=== PATIENT | male | born 1975 | race Two or more races ===

== ENCOUNTER 2018-03-02 11:04 | Emergency (ER) | payer OTHER ==
[~2018-03-02] VITALS: Ht 170.2 cm; Wt 83.9 kg
[2018-03-02] MEDS ORDERED: KETOROLAC TROMETH 60MG/2ML VIAL IM ONE (11:15)
[2018-03-02 11:42] VITALS: BP 152/93
[2018-03-02] MEDS ORDERED: traMADol HCL 50 MG TAB PO ONE (11:45)
== END 2018-03-02 13:12 | disposition home or self-care (01) ==
LOC: ER 11:04
DX: S32.018A Other fracture of first lumbar vertebra, initial encounter for closed fracture (principal); R51 Headache; E78.5 Hyperlipidemia, unspecified; F17.210 Nicotine dependence, cigarettes, uncomplicated; F10.20 Alcohol dependence, uncomplicated; Y90.9 Presence of alcohol in blood, level not specified; W17.89XA Other fall from one level to another, initial encounter; Y93.23 Activity, snow (alpine) (downhill) skiing, snowboarding, sledding, tobogganing and snow tubing; Y92.89 Other specified places as the place of occurrence of the external cause; Y99.8 Other external cause status
CPT/HCPCS: 70450; 72131